=== PATIENT | female | born 1995 | race Caucasian/White ===

== ENCOUNTER 2023-03-04 12:04 | Outpatient (CLI) | payer BC, SELFPAY | END 2023-03-04 12:05 | disposition home or self-care (01) | LOC: OP CLINIC 12:05 | PROVIDERS: PCP Family Medicine; Visit Provider Internal Medicine Gastroenterology | DX: R10.13 Epigastric pain (principal); K22.89 Other specified disease of esophagus; K31.89 Other diseases of stomach and duodenum; K21.9 Gastro-esophageal reflux disease without esophagitis | CPT/HCPCS: 43239; 88305; 88342; J2704 ==

== ENCOUNTER 2023-03-27 16:15 | Outpatient (RCR) | payer BC, SELFPAY | END 2023-03-27 17:08 | disposition home or self-care (01) | PROVIDERS: PCP Family Medicine; Visit Provider Orthopaedic Surgery | DX: G56.01 Carpal tunnel syndrome, right upper limb (principal); Z51.89 Encounter for other specified aftercare | CPT/HCPCS: 97035; 97110; 97140; 97165; X5282 ==

== ENCOUNTER 2024-03-11 12:30 | Outpatient (RCR) | payer BC, SELFPAY | END 2024-07-09 23:59 | disposition home or self-care (01) | PROVIDERS: PCP Family Medicine; Visit Provider Orthopaedic Surgery | DX: Z98.890 Other specified postprocedural states (principal); Z74.09 Other reduced mobility; R53.1 Weakness; Z51.89 Encounter for other specified aftercare | CPT/HCPCS: 97035; 97110; 97140; 97165; X5282 ==

== ENCOUNTER 2024-05-07 09:54 | Emergency (ER) | payer OTHER, SELFPAY ==
[2024-05-07 10:07] VITALS: BP 130/84; PULSE 94; RESP 18; TEMP 36.7; O2SAT 98; BMI 43.4
--- NOTE | 2024-05-07 11:01 | ED.GENADULT ---
HPI - General Adult General Chief complaint: Insect Bite Stated complaint: Bee sting yesterday getting worse Time Seen by Provider: 05/07/24 10:48 History of Present Illness HPI narrative: This 28-year-old female comes in with redness and swelling and warmth in her left upper extremity after being stung by have insect yesterday. She thinks that it was a yellow jacket that stung her. She has been stung in the past by insects but not had a reaction like this. She does not report any symptoms of angioedema or anaphylaxis. She does now have erythema in her left upper extremity on the anterior aspect of her upper arm typical of cellulitis. She does not report any fevers. Related Data Home Medications ?Medication ?Instructions ?Recorded ?Confirmed amitriptyline 25 mg tablet mg PO 01/10/23 05/06/24 atomoxetine 40 mg capsule 40 mg PO QAM 01/10/23 05/07/24 venlafaxine 75 mg capsule,extended 75 mg PO DAILY 01/10/23 05/07/24 release 24 hr Previous Rx's ?Medication ?Instructions ?Recorded prednisone 20 mg tablet 40 mg (2 x 20 mg) PO QDAY 5 days 05/06/24 #10 tabs cephalexin 500 mg capsule 500 mg PO TID 7 days #21 caps 05/07/24 Allergies Allergy/AdvReac Type Severity Reaction Status Date / Time gabapentin Allergy Mild Rash Verified 05/07/24 10:06 Review of Systems Status of ROS: Reports: 10 or more systems reviewed and unremarkable except as noted in History and below Narrative: Constitutional: No fevers, no weight gain or loss. Eyes: No discharge. No vision changes. HENT: No congestion, no sore throat, no ear pain. Cardiovascular: No chest pain, no palpitations. Respiratory: No shortness of breath, no wheezes, no cough. Gastrointestinal: No abdominal pain, no vomiting, no diarrhea. Genitourinary: No dysuria, no hematuria. Musculoskeletal: Normal range of motion. Skin: No rashes, no pruritis. Erythema with increased warmth in the left upper extremity as described above. Neurological: No dizziness, weakness, sensory change, speech change. Endo/Heme/Allergies: No bruising or bleeding. No polydipsia. Pysch: no suicidality, no anxiety, no insomnia. All other systems reviewed and are negative. PFSH PFSH Social History Smoking Status: Current every day smoker Exam Narrative: Exam Narrative: Constitutional: Well-developed, well-nourished, no acute distress. HEENT: Normocephalic, atraumatic. Neck: Normal range of motion. Nontender. Supple. Heart: Regular. No murmurs. Normal rate. Intact distal pulses. Lungs: Clear to auscultation. No chest discomfort. No wheezes, rhonchi, or rales. Abdomen: Normal bowel sounds. Nontender. No rebound tenderness. Genitalia: Deferred. Back: No midline tenderness. Normal range of motion. Extremities: Normal range of motion. No injury. Skin: Intact. No rash. Left upper extremity in her upper arm has erythema and warmth typical of cellulitis. This occupies most of the anterior aspect of that segment of her arm. It is not extending into the axilla. Neurologic: No altered sensation. No weakness. Alert and oriented. Psychiatric: No suicidality. No anxiety or depression. No insomnia. Nursing notes and vitals signs are reviewed. Const: Vital Signs, click to edit/add: Vital Signs - 24 hr 05/07/24 10:07 Temperature 98.0 F Pulse Rate [Pulse Oximeter] 94 Respiratory Rate 18 Blood Pressure [[facility] Upper Arm] 130/84 Pulse Oximetry 98 Oxygen Delivery Me thod Room Air Course Vital Signs Vital signs: Initial Vital Signs Temperature 98.0 F 05/07/24 10:07 Temperature Source Temporal Artery Scan 05/07/24 10:07 Pulse Rate 94 05/07/24 10:07 Pulse Rhythm Regular 05/07/24 10:07 Respiratory Rate 18 05/07/24 10:07 Blood Pressure 130/84 05/07/24 10:07 Blood Pressure Mean 99 05/07/24 10:07 Blood Pressure Position Sitting 05/07/24 10:07 Pulse Oximetry 98 05/07/24 10:07 Oxygen Delivery Method Room Air 05/07/24 10:07 Vital Signs Temperature 98.0 F 05/07/24 10:07 Pulse Rate 94 05/07/24 10:07 Respiratory Rate 18 05/07/24 10:07 Blood Pressure 130/84 05/07/24 10:07 Pulse Oximetry 98 05/07/24 10:07 Oxygen Delivery Method Room Air 05/07/24 10:07 Temperature 98.0 F 05/07/24 10:07 Pulse Rate 94 05/07/24 10:07 Respiratory Rate 18 05/07/24 10:07 Blood Pressure 130/84 05/07/24 10:07 Pulse Oximetry 98 05/07/24 10:07 Oxygen Delivery Method Room Air 05/07/24 10:07 Medical Decision Making MDM Narrative Medical decision making narrative: This 28-year-old female was stung by insect yesterday and now has developed what looks like a secondary cellulitis. She arrives with normal vital signs and other than those particular symptoms she is feeling normal. She is okay to be discharged home. I did provide prescription for Keflex and alerted her to signs and symptoms that would indicate a need for return and re-evaluation. Discharge Plan Discharge Clinical Impression: Cellulitis Patient Disposition: Home, Self-Care Condition: Stable Additional Instructions: Take medication as prescribed. Use [id number] medicines also as needed and directed. Follow up with MD return if worsening. Prescriptions: New cephalexin 500 mg capsule 500 mg PO TID 7 Days Qty: 21 0RF No Action amitriptyline 25 mg tablet PO venlafaxine 75 mg capsule,extended release 24hr 75 mg PO DAILY atomoxetine 40 mg capsule 40 mg PO QAM prednisone 20 mg tablet 40 mg PO QDAY 5 Days Qty: 10 0RF Follow Up/Referrals: Steffany Merritt DO [Primary Care Provider] - Stand Alone Forms: MyHealth Info Instructions
[2024-05-07 11:15] VITALS: BP 130/84; PULSE 94; RESP 18; TEMP 36.7
== END 2024-05-07 11:15 | disposition home or self-care (01) ==
PROVIDERS: Emergency Provider Emergency Medicine Emergency Medical Services; PCP Family Medicine
DX: L03.114 Cellulitis of left upper limb (principal); T63.441A Toxic effect of venom of bees, accidental (unintentional), initial encounter
CPT/HCPCS: 99283; 99284